=== PATIENT | female | born 1995 | race Caucasian/White ===

== ENCOUNTER 2017-09-25 12:55 | Emergency (ER) | payer SELFPAY ==
[2017-09-25] MEDS: HYDROcodone/APAP 5/325MG 1 TAB TABLET PO (13:36)
== END 2017-09-25 14:48 | disposition home or self-care (01) ==
LOC: ER 12:55
DX: K04.7 Periapical abscess without sinus (principal); R68.84 Jaw pain
CPT/HCPCS: 96360; 99284-25; J0690

== ENCOUNTER 2017-12-30 16:16 | Emergency (ER) | payer SELFPAY | END 2017-12-30 16:43 | disposition home or self-care (01) | LOC: ER 16:16 | DX: K02.9 Dental caries, unspecified (principal) | CPT/HCPCS: 99283 ==